=== PATIENT | female | born 1995 | race Two or more races ===

== ENCOUNTER 2022-06-16 12:42 | Emergency (ER) | payer OTHER ==
[2022-06-16 12:51] VITALS: BP 133/71
[2022-06-16] MEDS ORDERED: ONDANSETRON 4 MG/2 ML VIAL IVP STA (12:58)
[2022-06-16] MEDS ORDERED: SODIUM CHLORIDE 0.9% 1,000 ML IV STA (12:58)
[2022-06-16 13:10] LABS: BASOPHILS # (AUTO) 0.1 10^3/uL (0.0-0.1); BASOPHILS % (AUTO) 0.3 %; EOSINOPHILS % (AUTO) 0.1 %; HCT - HEMATOCRIT 45.9 % (37.0-47.0); LYMPHOCYTES # (AUTO) 0.5 10^3/uL (1.5-3.5); LYMPHOCYTES % (AUTO) 2.7 %; MEAN CORPUSCULAR HEMOGLOBIN 28.5 pg (27.0-31.0); MEAN CORPUSCULAR HGB CONC 32.7 g/dL (32.0-36.0); MEAN CORPUSCULAR VOLUME 87.3 fL (81.0-99.0); MONOCYTES # (AUTO) 0.5 10^3/uL (0.0-1.0); MONOCYTES % (AUTO) 2.7 %; NEUTROPHILS # (AUTO) 15.4 10^3/uL (1.5-6.6); NEUTROPHILS % (AUTO) 93.9 %; PLT - PLATELET COUNT 365 10^3/uL (130-450); RED BLOOD COUNT 5.26 10^6/uL (4.20-5.40); RED CELL DISTRIBUTION WIDTH 12.7 % (12.0-15.0); WHITE BLOOD COUNT 16.4 x10^3/uL (4.8-10.8)
[2022-06-16 13:21] LABS: ALBUMIN 4.7 g/dL (3.2-5.5); ALBUMIN/GLOBULIN RATIO 1.3 (1.0-2.2); BILIRUBIN,TOTAL 0.7 mg/dL (0.2-1.0); CREATININE 0.6 mg/dL (0.4-1.0); POTASSIUM 4.1 mmol/L (3.5-5.0); TOTAL PROTEIN 8.3 g/dL (6.7-8.2)
--- NOTE | 2022-06-16 13:24 | ED Physician Documentation ---
History of Present Illness - Stated complaint Stated Complaint: N/V/D ABD PX - Chief complaint Chief Complaint: Abd Pain - Additonal information Additional information: 26 -year-old female presents emergency department for evaluation of acute onset nausea vomiting and diarrhea that began this morning. Reports upper epigastric discomfort. No fevers. No dysuria urgency or frequency. No similar in others at home. Denies the possibility of . No past medical history. States that since the symptoms began she has vomited 3 times and has had 5 episodes of watery stools. All nonbloody. Review of Systems Constitutional: denies: Fever, Chills Throat: reports: Dental pain / toothache Cardiac: reports: Reviewed and negative Respiratory: reports: Reviewed and negative GI: reports: Abdominal Pain, Nausea, Vomiting, Diarrhea. denies: Hematemesis, Bloody / black stool : reports: Reviewed and negative Skin: reports: Reviewed and negative Musculoskeletal: reports: Reviewed and negative PD PAST MEDICAL HISTORY - Allergies Allergies/Adverse Reactions: Allergies Allergy/AdvReac Type Severity Reaction Status Date / Time No Known Drug Allergies Allergy Verified 06/16/22 12:50 PD ED PE NORMAL - General General: Alert and oriented X 3, No acute distress - HEENT HEENT: PERRL, Moist mucous membranes - Neck Neck: Supple, no meningeal sign, No adenopathy - Cardiac Cardiac: RRR, No murmur - Respiratory Respiratory: No respiratory distress, Clear bilaterally - Abdomen Abdomen: Normal bowel sounds, Soft, Non tender (I was unable to elicit any tenderness with light or deep palpation. No percussion tenderness. Unremarkable abdominal exam) - Back Back: No CVA TTP - Derm Derm: Normal color, Warm and dry - Extremities Extremities: No deformity, No tenderness to palpate, Normal ROM s pain - Neuro Neuro: Alert and oriented X 3 Eye Opening: Spontaneous Motor: Obeys Commands Verbal: Oriented GCS Score: 15 Results - Vitals Vitals: Vital Signs - 24 hr 06/16/22 12:50 Temperature 36.8 C Heart Rate 88 Respiratory 16 Rate Blood Pressure 133/71 H O2 Saturation 96 Oxygen O2 Source Room air - Labs Labs: Laboratory Tests 06/16/22 06/16/22 06/16/22 13:05 13:05 13:29 WBC 16.4 H RBC 5.26 Hgb 15.0 Hct 45.9 MCV 87.3 MCH 28.5 MCHC 32.7 RDW 12.7 Plt Count 365 MPV 9.0 Neut # (Auto) 15.4 H Lymph # (Auto) 0.5 L [place] # (Auto) 0.5 Eos # (Auto) 0.0 Baso # (Auto) 0.1 Absolute Nucleated RBC 0.00 Nucleated RBC % 0.0 Sodium 135 Potassium 4.1 Chloride 100 L Carbon Dioxide 25 Anion Gap 10.0 BUN 13 Creatinine 0.6 Estimated GFR (MDRD) 121 Glucose 129 H Calcium 9.0 Total Bilirubin 0.7 AST 22 ALT 27 Alkaline Phosphatase 59 Total Protein 8.3 H Albumin 4.7 Globulin 3.6 Albumin/Globulin Ratio 1.3 Lipase 34 Urine Color YELLOW Urine Clarity SL. CLOUDY Urine pH 6.0 Ur Specific [place] >=1.030 H Urine Protein NEGATIVE Urine Glucose (UA) NEGATIVE Urine Ketones TRACE Urine Occult Blood MODERATE H Urine Nitrite NEGATIVE Urine Bilirubin NEGATIVE Urine Urobilinogen 0.2 (NORMAL) Ur Leukocyte Esterase NEGATIVE Urine RBC 6-10 H Urine WBC 0-3 Ur Squamous Epith Cells MOD Squamous H Urine Bacteria Moderate H Ur Microscopic Review INDICATED Urine Culture Comments NOT INDICATED Urine HCG, Qual NEGATIVE PD Medical Decision Making - ED course Complexity details: reviewed results, re-evaluated patient, considered differential, d/w patient ED course: 26-year-old female presents emergency department for evaluation of acute onset epigastric pain, nausea vomiting and diarrhea that began this morning. She denies any recent illness or illness and others at home. No pertinent past medical or surgical history. Here in the emergency department she appears remarkably well without fevers, hypotension or tachycardia. Her abdominal exam was benign. I was unable to elicit any tenderness with light, deep palpation or percussion. CBC and electrolytes as well as urinalysis were obtained. Per my interpretation there is some mild leukocytosis. I attribute this to marginalization. Her electrolytes are without acute worrisome findings. Urinalysis is not consistent with acute cystitis. In addition patient lacks any urinary symptoms. Differentials considered include urinary tract infection, viral gastroenteritis, occult appendectomy, ovarian pathologies. I am I suspect that she has a viral gastroenteritis given the acute onset of symptoms. Leukocytosis is likely a stress marginalization. I have lower suspicion for an occult appendicitis given the lack of abdominal tenderness elicited. Her urinalysis is not consistent with infection and given lack of fevers or CVA tenderness this is also not consistent with an acute py elonephritis. However I did discuss with patient that the leukocytosis can sometimes be a red flag for more occult disorders. We discussed whether she would want to follow through with the CT scan today but given that she is improved with a liter of IV fluids and Zofran IV that I have administered here in the emergency department she feels comfortable going home with appropriate conservative care measures and return precautions Departure - Departure Disposition: Home, Self Care Clinical Impression: Nausea vomiting and diarrhea Condition: Stable Record reviewed to determine appropriate education?: Yes Instructions: ED Diarrhea Viral Comments: Judi you are seen today in the emergency department because this morning you developed nausea, vomiting and diarrhea. As we discussed at the bedside the most likely cause of your symptoms is a viral gastroenteritis or stomach flu. Most often the symptoms will resolve over about 3 to 5 days. Here in the emergency department your labs showed only a mild elevation in your white blood cell count. This can often be seen in times of stress or even with viral illness. Because your abdominal exam was so benign or without worrisome tenderness I do not think that we need to do a CT scan of your abdomen today. However if over the next few days you develop worsening symptoms, have sudden severe abdominal pain, uncontrolled vomiting despite the Zofran you are being discharged with then please return immediately to the ER.
[2022-06-16 13:43] LABS: BILIRUBIN,URINE NEGATIVE (NEGATIVE); GLUCOSE, URINE (UA) NEGATIVE (NEGATIVE); KETONES,URINE (UA) TRACE mg/dL (NEGATIVE); LEUKOCYTE ESTERASE, URINE NEGATIVE (NEGATIVE); NITRITE,URINE NEGATIVE (NEGATIVE); OCCULT BLOOD,URINE MODERATE (NEGATIVE); PROTEIN,URINE NEGATIVE (NEGATIVE); UROBILINOGEN,URINE 0.2 (NORMAL) E.U./dL (NORMAL)
[2022-06-16 13:45] LABS: CLARITY,URINE SL. CLOUDY (CLEAR); HCG UR QUAL NEGATIVE
[2022-06-16 13:49] LABS: BACTERIA,URINE Moderate /HPF (None Seen); SQUAMOUS EPITHELIAL CELL,UR MOD Squamous (<= Few); WBC,URINE 0-3 /HPF (0-5)
[2022-06-16] MEDS ORDERED: iohexoL-300 100 ML VIAL ONE (13:59)
[2022-06-16] MEDS ORDERED: ONDANSETRON ODT 4 MG Prepack 2 TL PRN (14:12)
== END 2022-06-16 14:27 | disposition home or self-care (01) ==
LOC: ED 12:42
DX: R11.2 Nausea with vomiting, unspecified (principal); R19.7 Diarrhea, unspecified; D72.829 Elevated white blood cell count, unspecified
CPT/HCPCS: 36415; 80053; 81001; 81003; 81025; 83690; 85025; 87086; 96374; 99284